=== PATIENT | male | born 2000 | race Caucasian/White ===

== ENCOUNTER 2020-05-20 14:53 | Emergency (ER) | payer OTHER, SELFPAY ==
[2020-05-20 14:58] VITALS: BP 131/76; PULSE 57; TEMP 36.8; O2SAT 99
--- NOTE | 2020-05-20 15:16 | ED.GENADUL_ITS ---
Discharge Plan Disposition Patient Disposition: HOME Condition: Stable Discharge Details Chief Complaint: Laceration Clinical Impression: Laceration of thumb Primary Care Provider: Birdie Mccarthy ED Provider: Romeo Estrada Discharge Instructions Instructions: Laceration (ED) Additional Instructions: No repair of the thumb is required. Tetanus was updated. Please keep the area clean and dry. Rest, elevate, [id number] Tylenol and/or Motrin as di rected for discomfort. I would like you to leave the initial dressing on for 36 hours, at which time you may change the outer dressing, but anything that is adhered to the laceration itself should be very gently cleaned and care forward. Be careful not to rip that off and cause reoccurring bleeding. Please watch for new or worsening symptoms and return to the ER for any concerns. Otherwise I would contact your primary care provider on Friday for prompt outpatient wound reevaluation. Medical Decision Making 20-year-old [id number] male presents with a right thumb injury. Neuro, vascular, tendon intact. There is a 1.5 cm fingertip avulsion laceration just barely involves the distal nail. No repair necessary. Patient unsure of his tetanus status and we cannot verify in our computer system. Will update tetanus now. Laceration will be cleaned and irrigated. X-ray not indicated. Will then apply a Surgifoam dressing. Patient comfortable with this plan and has no additional questions or concerns. Medical Records Medical records reviewed: Yes I reviewed the patient's medical records. HPI General Mode of arrival: ambulatory . Date/Time Provider Initiated Documentation: 05/20/20 15:01 . Limitations to Documentation: no limitations . Information obtained by: patient . HPI Narrative: 20-year-old [id number] gentleman who denies significant past medical history accidentally cut his right thumb while at work just prior to arrival. 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 He reports minimal discomfort. Denies numbness, tingling, weakness. No other symptoms. Unsure of his last tetanus status. Related Data Allergies Allergy/AdvReac Type Severity Reaction Status Date / Time No Known Allergies Allergy Unverified 05/20/20 15:00 General Stated Complaint: Laceration LIZ: 3 Review of Systems Constitutional Constitutional: Denies fever(s) and Denies weakness Musculoskeletal Musculoskeletal: Denies arthralgias, Denies numbness and Denies tingling Integumentary/Breasts Skin/Breast: Denies rash Neurologic Neurologic: Denies numbness, Denies tingling and Denies weakness [facility] Social History Smoking/Tobacco Use Status: Never Alcohol Intake: never Drug use: Never Substance use type: does not use Do you feel safe at home: Yes Do you feel safe in your relationship?: Yes Exam Const General: cooperative, healthy appearing, comfortable and no acute distress Orientation: alert and awake HENMT Head: normal to inspection, normocephalic and atraumatic Mouth: moist mucous membranes Eyes Conjunctivae: conjunctivae normal Neck Neck: normal visual inspection, trachea midline and supple Resp Effort & Inspection: normal respiratory effort and able to speak in complete sentences Cardio Rate: regular rate Rhythm: regular rhythm Skin General skin exam: no rashes or lesions noted Neuro General: patient alert, patient awake, moves all extremities and no focal motor deficits Sensory Exam: no sensory deficits noted Extrem Hand/finger images: 1. 2. 1.5 cm fingertip amputation laceration which does involve just the lateral aspect of the nail. There is no arterial bleed. Minimal oozing present. All distal to the IP joint. Neuro, vascular, tendon intact. No bony involvement. No foreign body Psych Appearance: grossly normal Mental Status: mental status grossly normal Course Vital Signs Vital signs: Vital Signs Temperature 36.8 C 05/20/20 14:58 Pulse 57 L 05/20/20 14:58 Blood Pressure 131/76 05/20/20 14:58 Pulse Oximetry 99 05/20/20 14:58 Temperature 36.8 C 05/20/20 14:58 Temperature Source Temporal Artery Scan 05/20/20 14:58 Pulse 57 L 05/20/20 14:58 Respiratory Effort Non-Labored 05/20/20 15:01 Blood Pressure 131/76 05/20/20 14:58 Blood Pressure Position Sitting 05/20/20 14:58 Pulse Oximetry 99 05/20/20 14:58 Oxygen Delivery Method Room Air 05/20/20 14:58 Oxygen Flow Rate 0 05/20/20 14:58 Pain Level 1 05/20/20 14:58
[2020-05-20] MEDS: Gelatin SPONGE 12-7 MM PKT 1 EACH TP (15:34)
--- NOTE | 2020-05-20 15:35 | WOUNDCARE ---
R thumb lac cleansed with 250mls NS, patted dry. surgifoam applied, telfa and bulky kerlix dressing with tape. secured, pt reports it feels comfortable and not tight.
== END 2020-05-20 15:54 | disposition home or self-care (01) ==
LOC: ER 15:37
PROVIDERS: Emergency Provider Physician Assistant; PCP Family Medicine
DX: S61.111A Laceration without foreign body of right thumb with damage to nail, initial encounter (principal); W31.82XA Contact with other commercial machinery, initial encounter; Y99.0 Civilian activity done for income or pay; Y93.G1 Activity, food preparation and clean up
CPT/HCPCS: 90471; 99284; 99283